=== PATIENT | female | born 1955 | race Caucasian/White ===

== ENCOUNTER 2023-05-21 16:06 | Outpatient (AMB) | payer MEDICARE, OTHER, SELFPAY ==
--- NOTE | 2023-05-21 16:30 | HO.NEPHOV_ITS ---
HPI HPI Comments History of Present Illness Details I had the delight of seeing Shannon in follow-up of her hypertension. 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 She has been monitoring her blood pressure at home which has been showing some lability. She does not take excess sodium in the diet, denies taking nonsteroidal anti-inflammatories on a regular basis and takes regular exercise. She has no edema. She has no history of renal dysfunction or uncontrolled thyroid disorder, low serum potassium or high calcium. She has very strong family history hypertension including her brother, sister as well as mother. She is not a diabetic and does not have any proteinuria. She had a 24 hour blood pressure monitor in the past. She feels well. [facility] Medical History (Updated 05/22/23 @ 04:36 by Nelson Tong MD) Knee pain Essential (primary) hypertension Surgical History (Updated 05/21/23 @ 16:33 by Tracy Pantoja MA) H/O knee surgery Social History (Updated 05/21/23 @ 16:34 by Tracy Pantoja MA) Alcohol intake: current Comment: On occassion Patient Tobacco Use Status: Never used Tobacco Vital Signs 05/21/23 16:32 Height 5 ft 3 in Weight 145 lb 6 oz BMI 25.7 BP 140/94 H Blood Pressure Location Lt brachial Position Sitting Pulse 81 Pulse Source Pulse Oximeter Pulse Oximetry (%) 95 Oxygen Delivery Method Room Air Physical Exam Vital Signs: Last Vital Signs Pulse 81 05/21/23 16:32 BP 140/94 H 05/21/23 16:32 Pulse Ox 95 05/21/23 16:32 Oxygen Delivery Method Room Air 05/21/23 16:32 BMI result Body Mass Index 25.7 Const General: comfortable and no acute distress Orientation/consciousness: patient oriented x3 HEENT Head: Yes normocephalic Mouth: Normal oral and palatal mucosa present Eyes EOM: EOMs intact bilaterally Neck Neck: Yes supple Resp Auscultation: clear to auscultation bilaterally Cardio Jugular venous distension: no JVD Rate: regular rate GI Palpation (GI): Soft to palpation Auscultation: normal bowel sounds General: Yes no CVA tenderness Back/Spine/Pelvis Back: no CVA tenderness Skin General skin exam: no rashes or lesions noted Neuro General: patient oriented x3 and moves all extremities Extrem General: Yes no pedal edema Assessment & Plan Assessment & Plan (1) Essential (primary) hypertension: Code(s): I10 - Essential (primary) hypertension Plan Shannon has history of labile blood pressure. She had undergone 24 hour blood pressure monitor in the past. She has no history of preeclampsia during her pregnancies. Her serum calcium, potassium and renal functions had been normal. She maintains good lifestyle modifications. Her volume status is optimal. I started her on amlodipine 2.5 mg once daily after explaining its side effects. She will continue to monitor her blood pressure at home. I discussed our goals of blood pressure and continued management strategy. Answered all questions and follow-up given. Medications: New amlodipine 2.5 mg PO DAILY 90 tabs 3RF Coding Level of Care Code Est Pt Level 4 (11696) Diagnoses Essential (primary) hypertension I10 Results Reviewed Nephrology Results: No Data to Display
[2023-05-21 16:32] VITALS: BP 140/94; PULSE 81; O2SAT 95; BMI 25.7
== END 2023-05-21 16:54 | disposition home or self-care (01) ==
PROVIDERS: PCP Internal Medicine; Visit Provider Internal Medicine Nephrology
DX: I10 Essential (primary) hypertension (principal)
CPT/HCPCS: 99214

== ENCOUNTER → 2023-05-21 16:06 | Outpatient (BNVA) | payer MEDICARE, OTHER, SELFPAY | PROVIDERS: PCP Internal Medicine; Visit Provider Internal Medicine Nephrology | DX: I10 Essential (primary) hypertension (principal) | CPT/HCPCS: 99212 ==

== ENCOUNTER 2023-08-20 09:32 | Outpatient (AMB) | payer MEDICARE, OTHER, SELFPAY ==
--- NOTE | 2023-08-20 09:34 | HO.NEPHOV_ITS ---
HPI HPI Comments History of Present Illness Details I had the delight of seeing Shannon in follow-up of her hypertension. 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 She has been monitoring her blood pressure at home which has been showing some lability. She does not take excess sodium in the diet, denies taking nonsteroidal anti-inflammatories on a regular basis and takes regular exercise. She has no edema. She has no history of renal dysfunction or uncontrolled thyroid disorder, low serum potassium or high calcium. She has very strong family history hypertension including her brother, sister as well as mother. She is not a diabetic and does not have any proteinuria. She had a 24 hour blood pressure monitor in the past. She was started on Amlodipine 2.5 mg at the last visit which is keeping her BP at goal. [facility] Medical History (Updated 05/22/23 @ 04:36 by Nelson Tong MD) Knee pain Essential (primary) hypertension Surgical History (Updated 05/21/23 @ 16:33 by Tracy Pantoja MA) H/O knee surgery Social History (Updated 05/21/23 @ 16:34 by Tracy Pantoja MA) Alcohol intake: current Comment: On occassion Patient Tobacco Use Status: Never used Tobacco Vital Signs 08/20/23 09:39 Height 5 ft 3 in Weight 147 lb BMI 26.0 BP 124/78 Blood Pressure Location Lt brachial Position Sitting Pulse 66 Pulse Source Pulse Oximeter Pulse Oximetry (%) 98 Oxygen Delivery Method Room Air Physical Exam Const General: comfortable and no acute distress Orientation/consciousness: patient oriented x3 HEENT Head: Yes normocephalic Mouth: Normal oral and palatal mucosa present Eyes EOM: EOMs intact bilaterally Neck Neck: Yes supple Resp Auscultation: clear to auscultation bilaterally Cardio Jugular venous distension: no JVD Rate: regular rate GI Palpation (GI): Soft to palpation Auscultation: normal bowel sounds General: Yes no CVA tenderness Back/Spine/Pelvis Back: no CVA tenderness Skin General skin exam: no rashes or lesions noted Neuro General: patient oriented x3 and moves all extremities Extrem General: Yes no pedal edema Assessment & Plan Assessment & Plan (1) Essential (primary) hypertension: Code(s): I10 - Essential (primary) hypertension Plan Shannon has history of labile blood pressure. She has no history of preeclampsia during her pregnancies. Her serum calcium, potassium and renal functions had been normal. She maintains good lifestyle modifications. Her volume status is optimal. I started her on amlodipine 2.5 mg once daily at the last visit after explaining its side effects, which is keeping her blood pressure at goal now. She will continue to monitor her blood pressure at home. I discussed our goals of blood pressure and continued management strategy. Answered all questions and follow-up given Coding Level of Care Code Est Pt Level 4 (55704) Diagnoses Essential (primary) hypertension I10 Results Reviewed Nephrology Results: No Data to Display
[2023-08-20 09:39] VITALS: BP 124/78; PULSE 66; O2SAT 98; BMI 26.0
== END 2023-08-20 10:03 | disposition home or self-care (01) ==
PROVIDERS: PCP Internal Medicine; Visit Provider Internal Medicine Nephrology
DX: I10 Essential (primary) hypertension (principal)
CPT/HCPCS: 99214

== ENCOUNTER → 2023-08-20 09:32 | Outpatient (BNVA) | payer MEDICARE, OTHER, SELFPAY | PROVIDERS: PCP Internal Medicine; Visit Provider Internal Medicine Nephrology | DX: I10 Essential (primary) hypertension (principal) | CPT/HCPCS: 99212 ==

== ENCOUNTER 2024-02-11 09:23 | Outpatient (AMB) | payer MEDICARE, OTHER, SELFPAY ==
[2024-02-11 09:31] VITALS: BP 120/80; PULSE 57; O2SAT 98; BMI 25.3
--- NOTE | 2024-02-11 09:31 | HO.NEPHOV ---
Vital Signs 02/11/24 09:31 Height 5 ft 3 in Weight 143 lb BMI 25.3 BP 120/80 Blood Pressure Location Lt brachial Position Sitting Pulse 57 Pulse Source Pulse Oximeter Pulse Oximetry (%) 98 Oxygen Delivery Method Room Air Intake Visit Reasons: 6 Month F/U/ LVM Shared Services And Outsourcing Manager Required: No Accompanied by: Self / Same As Patient Allergies Sulfa (Sulfonamide Antibiotics) Allergy (Verified 02/11/24 09:33) Unknown HPI Comments Details: I had the delight of seeing Shannon in follow-up of her hypertension. 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 She has been monitoring her blood pressure at home which has been showing some lability. She does not take excess sodium in the diet, denies taking nonsteroidal anti-inflammatories on a regular basis and takes regular exercise. She has no edema. She has no history of renal dysfunction or uncontrolled thyroid disorder, low serum potassium or high calcium. She has very strong family history hypertension including her brother, sister as well as mother. She is not a diabetic and does not have any proteinuria. She had a 24 hour blood pressure monitor in the past. She was started on Amlodipine 2.5 mg at the last visit which is keeping her BP at goal. [facility] Medical History (Updated 05/22/23 @ 04:36 by Nelson Tong MD) Knee pain Essential (primary) hypertension Surgical History H/O knee surgery Social History Alcohol intake: current Comment: On occassion Patient Tobacco Use Status: Never used Tobacco Review of Systems Const All systems reviewed & are unremarkable except as noted in HPI and below Physical Exam Vital Signs: Last Vital Signs Pulse 57 02/11/24 09:31 BP 140/90 H 02/11/24 09:31 Pulse Ox 98 02/11/24 09:31 Oxygen Delivery Method Room Air 02/11/24 09:31 BMI result Body Mass Index 25.3 Const General: comfortable and no acute distress Orientation/consciousness: patient oriented x3 HEENT Head: Yes normocephalic Mouth: Normal oral and palatal mucosa present Eyes EOM: EOMs intact bilaterally Neck Neck: Yes supple Resp Auscultation: clear to auscultation bilaterally Cardio Jugular venous distension: no JVD Rate: regular rate GI Palpation (GI): Soft to palpation Auscultation: normal bowel sounds General: Yes no CVA tenderness Back/Spine/Pelvis Back: no CVA tenderness Skin General skin exam: no rashes or lesions noted Neuro General: patient oriented x3 and moves all extremities Extrem General: Yes no pedal edema Results Reviewed Nephrology Results: No Data to Display Assessment & Plan Assessment & Plan (1) Essential (primary) hypertension: Code(s): I10 - Essential (primary) hypertension Category: Medical Plan Shannon has history of labile blood pressure. She has no history of preeclampsia during her pregnancies. Her serum calcium, potassium and renal functions had been normal. She maintains good lifestyle modifications. Her volume status is optimal. She can continue on amlodipine 2.5 mg once daily . She will continue to monitor her blood pressure at home. I discussed our goals of blood pressure and continued management strategy. Answered all questions and follow-up given Orders: Orders Protein Creatinine Ratio, Ur 1 Year I10 - Essential (primary) hypertension Electrolytes 1 Year I10 - Essential (primary) hypertension Blood Urea Nitrogen 1 Year I10 - Essential (primary) hypertension Creatinine 1 Year I10 - Essential (primary) hypertension Medications: Refilled amlodipine 2.5 mg PO DAILY 90 tabs 4RF Coding Level of Care Code Est Pt Level 4 (97187) Diagnoses Essential (primary) hypertension I10
== END 2024-02-11 10:00 | disposition home or self-care (01) ==
PROVIDERS: PCP Internal Medicine; Visit Provider Internal Medicine Nephrology
DX: I10 Essential (primary) hypertension (principal)
CPT/HCPCS: 99214

== ENCOUNTER → 2024-02-11 09:23 | Outpatient (BNVA) | payer MEDICARE, OTHER, SELFPAY | PROVIDERS: PCP Internal Medicine; Visit Provider Internal Medicine Nephrology | DX: I10 Essential (primary) hypertension (principal) | CPT/HCPCS: 99212 ==

== ENCOUNTER 2025-02-09 10:05 | Outpatient (AMB) | payer MEDICARE, OTHER, SELFPAY ==
--- NOTE | 2025-02-09 10:11 | HO.NEPHOV_ITS ---
Vital Signs 02/09/25 10:15 Height 5 ft 3 in Weight 145 lb BMI 25.7 BP 122/80 Blood Pressure Location Lt brachial Position Sitting Pulse 79 Pulse Source Pulse Oximeter Pulse Oximetry (%) 96 Oxygen Delivery Method Room Air Intake Visit Reasons: 1 yr follow up-[facility] Retail Helper Required: No Accompanied by: Self / Same As Patient Allergies Sulfa (Sulfonamide Antibiotics) Allergy (Verified 02/09/25 10:14) Unknown HPI Comments Details: I had the delight of seeing Shannon in follow-up of her hypertension. 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 She has been monitoring her blood pressure at home which has been showing some lability. She does not take excess sodium in the diet, denies taking nonsteroidal anti- inflammatories on a regular basis and takes regular exercise. She has no edema. She has no history of renal dysfunction or uncontrolled thyroid disorder, low serum potassium or high calcium. She has very strong family history hypertension including her brother, sister as well as mother. She is not a diabetic and does not have any proteinuria. She had a 24 hour blood pressure monitor in the past. She was started on Amlodipine 2.5 mg at the last visit which is keeping her BP at goal. [facility] Medical History (Updated 05/22/23 @ 04:36 by Nelson Tong MD) Knee pain Essential (primary) hypertension Surgical History H/O knee surgery Social History Alcohol intake: current Comment: On occassion Patient Tobacco Use Status: Never used Tobacco Physical Exam Const General: comfortable and no acute distress Orientation/consciousness: patient oriented x3 HEENT Head: Yes normocephalic Mouth: Normal oral and palatal mucosa present Eyes EOM: EOMs intact bilaterally Neck Neck: Yes supple Resp Auscultation: clear to auscultation bilaterally Cardio Jugular venous distension: no JVD Rate: regular rate GI Palpation (GI): Soft to palpation Auscultation: normal bowel sounds General: Yes no CVA tenderness Back/Spine/Pelvis Back: no CVA tenderness Skin General skin exam: no rashes or lesions noted Neuro General: patient oriented x3 and moves all extremities Extrem General: Yes no pedal edema Assessment & Plan Assessment & Plan (1) Essential (primary) hypertension: Code(s): I10 - Essential (primary) hypertension Category: Medical Plan Shannon has history of labile blood pressure. Her serum calcium, potassium and renal functions had been normal. She maintains good lifestyle modifications. Her volume status is optimal. She can continue on amlodipine 2.5 mg once daily . She will continue to monitor her blood pressure at home. I discussed our goals of blood pressure and continued management strategy. Answered all questions and follow-up given Orders: Orders Protein Creatinine Ratio, Ur 1 Year I10 - Essential (primary) hypertension Creatinine 1 Year I10 - Essential (primary) hypertension Blood Urea Nitrogen 1 Year I10 - Essential (primary) hypertension Electrolytes 1 Year I10 - Essential (primary) hypertension Coding Level of Care Code Est Pt Level 4 (14594) Diagnoses Essential (primary) hypertension I10
[2025-02-09 10:15] VITALS: BP 122/80; PULSE 79; O2SAT 96; BMI 25.7
--- OUTSIDE RECORDS SUMMARY | 2025-02-09 11:27 | XMS_ITS | Encounter Summary ---
Author Organization [facility] Address [address] [place] [address] Phone Care Team Providers Care Mail Order Sorter Name Role Phone Adrian Parker MD Primary Care Provider [phone] Encounter Details Date Type Department Care Team (Late st Contact Info) Description 09/17/2021 Documentation Only [facility] [address] [place] [id number] Nelson Tong MD Social History Tobacco Use Types Packs/Day Years Used Date Smoking Tobacco: Former Cigarettes Q uit: 05/11/1969 Smokeless Tobacco: Never Comments:Smoking History Inf o:Every day Alcohol Use Standard Drinks/Week Comments Yes 0 (1 standard drink = 0.6 oz pur e alcohol) occasionally Comments Unknown Sex and Gender Information Value Date Recorded Sex Assigned at Not on file Legal Sex Female 5:10 PM EST Gender Identity Not on file Sexual Orientation Not on file COVID-19 Exposure Response Date Recorded In the last month, have you been in contact with someone who was confirmed or suspected to have Coronavirus / COVID-19? No / Unsure 09/16/2021 1:59 PM EDT documented as of this encounter Plan of Treatment Not on file documented as of this encounter Visit Diagnoses Not on filedocumented in this encounter Care Teams Mail Order Sorter Relationship Specialty Start Date End Date Adrian Parker MD [address] [place] [address] PCP - General Internal Medicine 09/09/21 documented as of this encounter
--- OUTSIDE RECORDS SUMMARY | 2025-02-09 11:27 | XMS_ITS | Clinical Summary ---
Author Organization [facility] Address [address] [address] Phone Care Team Providers Care Research Laboratory Specialist Name Role Phone Adrian Parker MD Primary Care Provider + [phone] Allergies Active Allergy Reactions Criticality Noted Date Comments Grass Pollen Standardized Ext 2022 Sulfa Antibiotics Other (see comments) 09/07/19 22 Medications albuterol HFA (PROVENTIL HFA;VENTOLIN HFA) 108 (90 Base) MCG/ACT inhaler Active cholecalciferol (VITAMIN D-3) 25 MCG (1000 UT) capsule Take 1 capsule by mouth 1 (one) time each day Active levothyroxine (SYNTHROID, LEVOTHROID) 88 MCG tablet Take 1 tablet by mouth 1 (one) time each day Active polyethylene glycol (GLYCOLAX) 17 GM/SCOOP powder 1 (one) time each day Active calcium 500 MG tablet Take 1 tablet by mouth 1 (one) time each day Active Multiple Vitamin (MULTIVITAMIN ADULT PO) Take 1 tablet by mouth 1 (one) time each day Active rosuvastatin (CRESTOR) 10 MG tablet Take 1 tablet by mouth 5 (five) times a week 10/01/2022 Active naproxen sodium (ALEVE) 220 MG tablet Take 220 mg by mouth 1 (one) time each day in the morning 2 tabs at night Active aspirin (ST ESA) 81 MG EC tablet Take 81 mg by mouth 1 (one) time each day Active omega-3 (FISH OIL) 1000 MG capsule Take by mouth 1 (one) time each day Active Active Problems Problem Noted Date Diagnosed Date Labile blood pressure 10/09/2021 Hypertension 09/09/2021 Essential hypertension 09/06/2021 Resolved Problems Problem Noted Date Diagnosed Date Resolved Date Neck pain 09/06/2021 09/06/2021 Immunizations Immunization Administration Dates Next Due Hep A / Hep B 2013,05/17/2013 Family History Medical History Relation Comments Cancer Father Prostate Cancer Mother Breast Hypertension Mother Hypertension Sibling 1 Brother/Sister Diabetes Sibling 2 Borderline Relation Status Comments Father Mother Sibling 1 Sibling 2 Social History Tobacco Use Types Packs/Day Years Used Date Smoking Tobacco: Former Cigarettes Q uit: 05/11/1969 Smokeless Tobacco: Never Tobacco Cessation:Counseling Given: Not Answered Comments:Smoking History Info:Every day Alcohol Use Standard Drinks/Week Comments Yes 0 (1 standard drink = 0.6 oz pur e alcohol) occasionally Comments Unknown Sex and Gender Information Value Date Recorded Sex Assigned at Not on file Legal Sex Female 5:10 PM EST Gender Identity Not on file Sexual Orientation Not on file Last Filed Vital Signs Vital Sign Reading Time Taken Comments Blood Pressure 140/80 10/09/2022 2:13 PM EDT Pulse 87 10/09/2022 2:13 PM EDT Temperature - - Respiratory Rate - - Oxygen Saturation 98% 10/09/2021 8:49 AM EDT Inhaled Oxygen Concentration - - Weight 67 kg (147 lb 12.8 oz) 10/09/2022 2:13 PM EDT Height - - Body Mass Index - - Plan of Treatment Health Maintenance Due Date Last Done Comments Breast Cancer Screening 1957 Pneumococcal Vaccine: 50+ Ye ars (1 of 2 - PCV) 1976 Colorectal Cancer Screening: Annual FOBT 2006 Colorectal Cancer Screening: Colonoscopy 2006 Colorectal Cancer Screening: Sigmoidoscopy 2006 Hepatitis B Vaccine (3 of 3 - Hep B Twinrix 3-dose series) 11/14/2013 2013, 05/17/2013 Influenza Vaccine (#1) 2025 Insurance Medicare [facility] Medicare Care Teams Research Laboratory Specialist Relationship Specialty Start Date End Date Adrian Parker MD [address] [facility] [place] [address] PCP - General Internal Medicine 09/09/21
--- OUTSIDE RECORDS SUMMARY | 2025-02-09 11:27 | XMS_ITS | Clinical Summary ---
Author Organization [facility] Address [address] [place] [address] Care Team Providers Care Automatic Teller Machine Servicer Name Role Phone Adrian Parker MD Primary Care Provider + [phone] Allergies Active Allergy Reactions Criticality Noted Date Comments Grass 07/07/2022 Sulfa Antibiotics Hives,Rash Low 06/20/2020 Other reaction(s): Other (see comments) Medications Medication Sig Dispensed Refills Start Date End Date Status levothyroxine (SYNTHROID) tablet 88 mcg levothyroxine 88 mcg tablet 0 05/17/2013 Active Glucosamine-Chondroi tin 500-400 MG CAPS Take 1 capsule by mouth. 0 Active montelukast (SINGULAIR) 10 MG tablet montelukast 10 mg tablet 0 Active Cholecalciferol 25 MCG (1000 UT) capsule Take 1 capsule by mouth. 0 Active atorvastatin (LIPITOR) tablet 10 mg atorvastatin 10 mg tablet 0 Active VITAMIN D PO Take by mouth. 0 Active polyethylene glycol (GLYCOLAX) 17 GM/SCOOP powder 1 (one) time each day 0 Active psyllium (METAMUCIL) 58.6 % packet Take 1 packet by mouth daily. 0 Active Ibuprofen & Acetaminophen 600 & 500 MG TBPK Take by mouth. 0 Active Family History Medical History Relation Name Comments Cancer Father Cancer Mother Hyperlipidemia Mother Diabetes Sister Hyperlipidemia Sister Relation Name Status Comments Father Mother Sister Social History Tobacco Use Types Packs/Day Years Used Date Smoking Tobacco: Never Smokeless Tobacco: Never Tobacco Cessation:Counseling Given: Not Answered Alcohol Use Standard Drinks/Week Comments Yes 0 (1 standard drink = 0.6 oz pur e alcohol) Sex and Gender Information Value Date Recorded Sex Assigned at Female 07/07/2022 9:58 AM EST Gender Identity Female 07/07/2022 9:58 AM EST Sexual Orientation Not on file Job Start Date Occupation Industry Not on file Not on file Not on file Last Filed Vital Signs Vital Sign Reading Time Taken Comments Blood Pressure - - Pulse - - Temperature - - Respiratory Rate - - Oxygen Saturation - - Inhaled Oxygen Concentration - - Weight 66.7 kg (147 lb) 07/07/2022 10:07 AM EST Height 160 cm (5' 3 ) 07/07/2022 10:07 AM EST Body Mass Index 26.04 07/07/2022 10:07 AM EST Plan of Treatment Health Maintenance Due Date Last Done Comments Hepatitis C Screening 1955 COVID-19 Vaccine (#1) 1957 Depression Screening 1969 Preventative Health Evaluation 1975 DTap / Tdap / Td (1 - Tdap) 1976 Colon Cancer Screening (Colonoscopy) 2002 Breast Cancer Screening (Mammogram) 2007 Shingrix-Zoster Vaccine (1 o f 2) 2007 Hepatitis B Vaccines (3 of 3 - Hep B Twinrix 3-dose series) 11/14/2013 2013, 05/17/2013 Fall Risk Assessment 2022 Osteoporosis Screening (DEXA Scan) 2022 Pneumococcal Vaccine (1 of 1 - PCV) 2022 Influenza Vaccine (#1) 2025 05/17/2013 RSV Adult > 60+ Yrs or (1 - 1-dose 75+ series) 2032 RSV Ped < 20 months Aged Out No longe r eligible based on patient's age to complete this topic Care Teams Automatic Teller Machine Servicer Relationship Specialty Start Date End Date Adiran Parker MD [address] [address] PCP - General Internal Medicine 06/06/19
== END 2025-02-09 10:50 | disposition home or self-care (01) ==
LOC: HO.HKAS 10:06
PROVIDERS: PCP Internal Medicine; Visit Provider Internal Medicine Nephrology
DX: I10 Essential (primary) hypertension (principal)
CPT/HCPCS: 99214

== ENCOUNTER → 2025-02-09 10:05 | Outpatient (BNVA) | payer MEDICARE, OTHER, SELFPAY | PROVIDERS: PCP Internal Medicine; Visit Provider Internal Medicine Nephrology | DX: I10 Essential (primary) hypertension (principal) | CPT/HCPCS: 99212 ==